=== PATIENT | female | born 1950 | race Caucasian/White ===

== ENCOUNTER 2017-09-05 09:14 | Inpatient (IN) | payer OTHER ==
[~2017-09-05] VITALS: Ht 154.9 cm; Wt 70.9 kg
[~2017-09-05 09:14] MED LIST: AVAPRO150 MG PO; CETIRIZINE HCL10 M2 PO; FLONASE16 G1 BOTH NARES; GLIPIZIDE5 MG PO; GLUCOSAMINE H1500 MG PO; IRBESARTAN150 MG PO; LEVEMIR FL100 UNITS/ SC; LEVEMIR100 UNIT/2 SC; METFORMIN HCL500 M1 PO; METFORMIN HCL500 MG PO; NAPROSYN500 MG PO; NAPROXEN500 MG PO; ONE-A-DAY ESSE1 EAC1 PO; PATANASE30.5 GM BOTH NARES; POTASSIUM-9999 MG PO; PRILOSEC20 MG PO; SIMVASTATIN20 MG PO; SYNTHROID88 MCG PO; VICTOZA 2-0.6 MG/0.1 SC; ZYRTEC10 M3 PO
[2017-09-05 09:52] LABS: HEMATOCRIT 42.6 % (36.0-46.0); HEMOGLOBIN 14.1 G/DL (11.9-15.5); MCH 27.8 PG (29.0-34.0); MCHC 33.1 G/DL (30.0-36.0); MCV 83.9 FL (83-99); PLATELET COUNT 427 K/uL (156-360); RBC DIS.WIDTH-CV 14.4 % (11.8-14.6); RBC DIS.WIDTH-SD 43.8 % (39-53); RED BLOOD COUNT 5.08 M/uL (3.80-5.20); WHITE BLOOD COUNT 14.2 K/uL (4.1-10.2)
[2017-09-05 10:01] LABS: CHLORIDE 96 mEq/L (99-109); POTASSIUM 3.4 mEq/L (3.7-5.4); SODIUM 135 mEq/L (136-147)
[2017-09-05 10:02] LABS: GLUCOSE 163 mg/dL (70-99)
[2017-09-05 10:06] LABS: CREATININE 1.2 mg/dL (0.6-1.3); GFR ESTIMATE (CALCULATED) 48 mL/min/
[2017-09-05 10:07] LABS: UREA NITROGEN (BUN) 26 mg/dL (9-23)
[2017-09-05 10:18] LABS: TROP-I INTERPRETATION NEGATIVE; TROPONIN-I 0.02 ng/mL (0.0-0.30)
[2017-09-05] MEDS ORDERED: GLUCOPHAGE500 MG PO (12:57)
[2017-09-05] MEDS ORDERED: SYNTHROID75 MCG PO (12:58)
[2017-09-05] MEDS ORDERED: GLUCOTROL5 MG PO (12:58)
[2017-09-05] MEDS ORDERED: BASAGLAR K100 UNIT/1 SC (12:59)
[2017-09-05] MEDS ORDERED: PRESERVISION T1 EACH PO (13:00)
[2017-09-05] MEDS ORDERED: GARCINIA CAMBO1 EACH PO (13:00)
[2017-09-05] MEDS ORDERED: ZOFRAN4 MG PO (13:01)
[2017-09-05 13:26] LABS: HDL CHOLESTEROL 52 MG/DL (Desirable>=50); LDL CHOLESTEROL 62 mg/dL (Desirable<100); NON-HDL CHOLESTEROL 84 mg/dL (Desirable<160); TOTAL CHOLESTEROL 136 mg/dL (Desirable<200); TRIGLYCERIDES 110 MG/DL (Normal: <150)
[2017-09-05 14:15] VITALS: BP 199/88
[2017-09-05 14:22] LABS: TROP-I INTERPRETATION NEGATIVE; TROPONIN-I < 0.01 ng/mL (0.0-0.30)
[2017-09-05] MEDS ORDERED: COLACE100 MG PO (14:37)
[2017-09-05 14:56] LABS: BASOPHIL (%) 0.3 % (0-1); EOSINOPHIL (%) 0.8 % (0-5); EOSINOPHIL COUNT 0.1 K/uL (0-0.3); HEMATOCRIT 38.6 % (36.0-46.0); HEMOGLOBIN 12.5 G/DL (11.9-15.5); IMMATURE GRANULOCYTE (%) 0.3 % (0.0-0.7); LYMPHOCYTE (%) 31.1 % (15-42); LYMPHOCYTE COUNT 3.6 K/uL (1.0-2.8); MCH 27.5 PG (29.0-34.0); MCHC 32.4 G/DL (30.0-36.0); MCV 84.8 FL (83-99); MONOCYTE (%) 6.1 % (3-12); MONOCYTE COUNT 0.7 K/uL (0-0.8); NEUTROPHIL (%) 61.4 % (45-76); NEUTROPHIL COUNT 7.2 K/uL (1.8-6.4); PLATELET COUNT 363 K/uL (156-360); RBC DIS.WIDTH-CV 14.6 % (11.8-14.6); RBC DIS.WIDTH-SD 44.6 % (39-53); RED BLOOD COUNT 4.55 M/uL (3.80-5.20); WHITE BLOOD COUNT 11.7 K/uL (4.1-10.2)
[2017-09-05 15:03] LABS: INTER. NORMALIZED RATIO 1.1
[2017-09-05 15:06] LABS: PTT 28.8 SEC (25-37)
[2017-09-05 15:23] LABS: CHLORIDE 103 MEQ/L (99-109); CREATININE 0.9 MG/DL (0.6-1.3); GFR ESTIMATE (CALCULATED) > 59 mL/min/; POTASSIUM 3.4 MEQ/L (3.7-5.4); SODIUM 137 MEQ/L (136-147); UREA NITROGEN (BUN) 22 mg/dL (9-23)
[2017-09-05 15:31] LABS: APPEARANCE CLEAR ((CLEAR)); BILIRUBIN NEGATIVE; BLOOD NEGATIVE; COLOR YELLOW ((YELLOW)); GLUCOSE (STRIP) NEGATIVE; KETONES NEGATIVE; LEUKOCYTES TRACE; NITRITE NEGATIVE; PROTEIN (STRIP) NEGATIVE; SPECIFIC GRAVITY 1.021 (1.000-1.030); UROBILINOGEN 0.2 MG/DL (0.2-1.0)
[2017-09-05 15:32] LABS: GLUCOSE 87 mg/dL (70-99)
[2017-09-05 16:00] LABS: BACTERIA NONE SEEN /HPF; EPITHELIAL CELLS RARE /HPF; MUCUS TRACE /LPF; RED BLOOD CELLS 0-5 /HPF (0-5)
[2017-09-05 17:14] LABS: ALBUMIN 3.4 G/DL (3.2-4.8); ALKALINE PHOSPHATASE 66 IU/L (3-129); ALT (GPT) 10 IU/L (3-49); AMYLASE 100 IU/L (1-118); AST (GOT) 14 IU/L (2-34); DIRECT BILIRUBIN 0.1 mg/dL (0.0-0.3); LIPASE 245 U/L (1.0-51.0); TOTAL BILIRUBIN 0.5 MG/DL (0.0-1.0)
[2017-09-05 17:15] LABS: TOTAL PROTEIN 5.3 G/DL (6.4-8.3)
[2017-09-05 17:34] VITALS: BP 182/77
[2017-09-05 20:00] VITALS: BP 140/87
[2017-09-05 20:00] LABS: TROP-I INTERPRETATION NEGATIVE; TROPONIN-I < 0.01 ng/mL (0.0-0.30)
[2017-09-05 23:48] VITALS: BP 143/85
[2017-09-06] VITALS (8 sets, daily range): BP systolic 128–174; BP diastolic 71–87
[2017-09-06] MEDS ORDERED: ZOFRAN4 MG PO (14:15)
[2017-09-06] MEDS ORDERED: ATORVASTATIN CA40 MG PO (14:15)
[2017-09-06] MEDS ORDERED: LOPRESSOR25 MG PO (14:15)
[2017-09-07 04:07] VITALS: BP 107/61
[2017-09-07 08:01] VITALS: BP 182/78
[2017-09-07 11:05] VITALS: BP 115/67
[2017-09-07] MEDS ORDERED: AMLODIPINE BESYL5 MG PO (13:29)
[2017-09-07] MEDS ORDERED: CIPRO500 MG PO (13:29)
[2017-09-07] MEDS ORDERED: GLUCOPHAGE500 MG PO (14:27)
== END 2017-09-07 15:06 | disposition home or self-care (01) | DRG 316 ==
LOC: EME 09:14 → 4SOUTH 11:57 → EDOF 11:57 → ENRESERV 12:00 → CANRESERV 12:00 → ENRESERV 13:01 → 4SOUTH 14:08
PROVIDERS: Emergency Medicine; Hospitalist; Pediatrics
DX: R94.31 Abnormal electrocardiogram [ECG] [EKG] (principal); A08.4 Viral intestinal infection, unspecified; I10 Essential (primary) hypertension; E11.9 Type 2 diabetes mellitus without complications; E78.5 Hyperlipidemia, unspecified; E87.6 Hypokalemia; R11.14 Bilious vomiting; R35.0 Frequency of micturition; R53.1 Weakness; Z88.5 Allergy status to narcotic agent; Z79.4 Long term (current) use of insulin; Z88.2 Allergy status to sulfonamides; Z88.1 Allergy status to other antibiotic agents; Z82.49 Family history of ischemic heart disease and other diseases of the circulatory system
CPT/HCPCS: 71045; 74177; 80048; 80048 91; 80061; 80076; 81003; 82150; 82948; 83690; 84484; 85025; 85027; 85610; 85730; 87040; 87086; 87641; 93005; 99281; 99285; G0378; J0360; J0744; J1650; J1815; J2405; J3480; J7030; J7120; S0028